=== PATIENT | female | born 1990 | race Caucasian/White ===

== ENCOUNTER 2020-09-08 02:39 | Outpatient (CLI) | payer BC, SELFPAY ==
--- NOTE | 2020-09-08 08:15 | DI.US_ITS ---
EXAM: US PELVIS TRANSVAGINAL CLINICAL HISTORY: hirsutism, irreg.menstrual cycles,obesity,E28.2,POLYCYSTIC OVARIAN SYNDROME TECHNIQUE: Transabdominal and transvaginal imaging was performed using standard protocol. COMPARISON: No exams were available for comparison FINDINGS: Exam is somewhat limited by patient body habitus. KIDNEYS: Kidneys are symmetric in size. No evidence of renal calculi. No evidence of hydronephrosis. No renal mass or cyst identified. The bladder is unremarkable. UTERUS: Anteverted. 7.0 x 2.7 x 4.0 Endometrium: 4 millimeters Myometrium: Unremarkable. Cervix: Unremarkable. OVARIES: Right: Cyst or mass: None. Normal size. 1.1 centimeter dominant follicle. Left: Cyst or mass: None. Normal size. DOPPLER: Color: Symmetric and uniform flow to both ovaries. No hyperemia. Duplex: Normal ovarian arterial waveforms visualized. CUL-DE-SAC: Free fluid: None. IMPRESSION: 1. Normal-appearing uterus with endometrial stripe within normal limits. 2. Unremarkable bilateral ovaries. DATA REPOSITORY:
== END 2020-09-08 02:40 ==
LOC: DI 02:39
PROVIDERS: PCP Family Medicine; Visit Provider Family Medicine
DX: E28.2 Polycystic ovarian syndrome (principal)
CPT/HCPCS: 76830; 76856

== ENCOUNTER 2020-09-15 02:28 | Outpatient (CLI) | payer BC, SELFPAY ==
[2020-09-15 14:24] LABS: ALT 26 U/L (14-59); AST 16 U/L (15-37); Albumin 3.7 g/dL (3.4-5.0); Alkaline Phosphatase 101 U/L (46-116); Anion Gap 14.5 mmol/L (3-11); BUN 11 mg/dL (7-18); Bilirubin, Total 0.5 mg/dL (0.2-1.0); CO2 23.5 mmol/L (21.0-32.0); CREATININE 0.8 mg/dL (0.55-1.02); Calcium 9.1 mg/dL (8.5-10.1); Calculated LDL 95 mg/dL (<100); Chloride 102 mmol/L (98-107); Cholesterol 169 mg/dL (<200); Glucose 90 mg/dL (74-106); HDL Cholesterol 53 mg/dL (40-60); Potassium 3.9 mmol/L (3.5-5.1); Sodium 140 mmol/L (136-145); Total Protein 8.1 g/dL (6.4-8.2); Triglyceride 108 mg/dL (<150)
[2020-09-15 22:33] LABS: FSH 10.3 mIU/mL (See Note)
[2020-09-15 22:37] LABS: LH 3.9 mIU/mL (See Note); Prolactin 10.6 ng/mL (See Table)
[2020-09-20 14:10] LABS: Testosterone, Total 68 ng/dL (8-60)
[2020-09-21 00:05] LABS: 17-Hydroxyprogesterone 1040 ng/dL
== END 2020-09-15 02:29 | disposition home or self-care (01) ==
LOC: LBO 02:28
PROVIDERS: PCP Family Medicine; Visit Provider Family Medicine
DX: L68.0 Hirsutism (principal); Z13.220 Encounter for screening for lipoid disorders
CPT/HCPCS: 36415; 80053; 80061; 84403; 83001; 83002; 83498; 84146

== ENCOUNTER 2020-10-09 04:21 | Outpatient (CLI) | payer BC, SELFPAY ==
[2020-10-09 08:15] LABS: TSH 3.25 uIU/mL (0.36-3.74)
[2020-10-10 15:55] LABS: Adrenocorticotropic Hormone, P 121 pg/mL
== END 2020-10-09 04:22 | disposition home or self-care (01) ==
LOC: LBO 04:21
PROVIDERS: PCP Family Medicine; Visit Provider Family Medicine
DX: L68.0 Hirsutism (principal)
CPT/HCPCS: 36415; 82024; 84443

== ENCOUNTER → 2021-10-09 16:20 | Outpatient (CLI) | payer BC, SELFPAY ==
--- NOTE | 2021-10-09 13:28 | DI.RAD_ITS ---
Exam(s) XR CHEST 2V PA LATERAL EXAM: XR CHEST 2V PA LATERAL CLINICAL HISTORY: cough/sob,r05.9 TECHNIQUE: 2D digital imaging was performed of the chest. Three images were obtained. PA and later al views were obtained. COMPARISON: No exams were available for comparison FINDINGS: MEDIASTINUM: Normal. HEART: Normal. PULMONARY VASCULATURE: Normal. LUNGS: Clear. PLEURAL SPACE: No pleural effusion or pneumothorax. BONE:Within normal limits for the patient's age. OTHER FINDINGS:Normal. IMPRESSION: No acute pulmonary findings. DATA REPOSITORY: RADIATION DOSE DELIVERED:
== END ==
PROVIDERS: PCP Nurse Practitioner Family; Visit Provider Nurse Practitioner Family
DX: R06.02 Shortness of breath (principal); R05.8 Other specified cough
CPT/HCPCS: 71046

== ENCOUNTER 2021-11-12 10:04 | Outpatient (REF) | payer BC, SELFPAY ==
[2021-11-13 12:45] LABS: COVID-19 RT-PCR UVMMC Result Negative (Negative)
== END 2021-11-12 10:05 | disposition home or self-care (01) ==
LOC: LBN 10:04
PROVIDERS: PCP Nurse Practitioner Family; Visit Provider Family Medicine
DX: Z20.822 Contact with and (suspected) exposure to COVID-19 (principal); R05.8 Other specified cough
CPT/HCPCS: U0003

== ENCOUNTER 2022-05-15 15:34 | Outpatient (REF) | payer OTHER, SELFPAY ==
--- NOTE | 2022-05-15 13:10 | PAPFT_PTH ---
PATIENT: Hiral Chen LOC: [facility] U#:[id number] AGE/SX: 31/F ROOM: RE05/15/[address]: BLAINE Andersen : 1990 BED: DIS: 05/15/2022 SPEC #: [id number] RECD: 05/16/22 13:11 STATUS: JIMENEZ RENoris #: [id number] HAIDER: 05/15/22 13:[address]: Katherine Clark DEPT: [facility] Cytology RECD BY: Shilpi Smart Tissues: 1 - CX/ENDOCX FOR PAP SMEARS Procedures: PAP THIN PREP/[facility] Screening HPV DNA PROBE Comments: [id number]
== END 2022-05-15 15:35 | disposition home or self-care (01) ==
LOC: LBN 15:34
PROVIDERS: PCP Nurse Practitioner Family; Visit Provider Nurse Practitioner Family
DX: Z12.4 Encounter for screening for malignant neoplasm of cervix (principal); Z11.51 Encounter for screening for human papillomavirus (HPV)
CPT/HCPCS: 88142; 87624